=== PATIENT | female | born 1945 | race Caucasian/White ===

== ENCOUNTER 2017-11-27 06:49 | Inpatient (IN) | payer OTHER ==
[2017-11-17 13:59] VITALS: BMI 32.0
--- NOTE | 2017-11-19 10:58 | PAT Medication Instructions ---
Service Date Nov 19, 2017. Current Home Medication List Aspirin (Aspir-81), 81 MG PO QAM Diclofenac Sodium (Voltaren), 75 MG PO BID Multivitamin (Multivitamin), 1 TAB PO QAM Psyllium (Metamucil), 2 CAP PO TIDM Rosuvastatin Calcium (Crestor), 5 MG PO 1-2XWEEK Tramadol (Ultram), 50 MG PO Q6H PRN for RN [Vitamin D], 450 UNITS PO QAM Medication Instructions For Your Scheduled Surgery -Instructions per surgeon: Diclofenac Sodium (Voltaren), 75 MG PO BID - Hold the following medications the morning of surgery: Multivitamin (Multivitamin), 1 TAB PO QAM Psyllium (Metamucil), 2 CAP PO TIDM [Vitamin D], 450 UNITS PO QAM - Take the following medications the morning of surgery with a sip of water: Aspirin (Aspir-81), 81 MG PO QAM Tramadol (Ultram), 50 MG PO Q6H PRN (if needed, may be taken up to four hours before surgery) Rosuvastatin Calcium (Crestor), 5 MG PO 1-2XWEEK (if scheduled) - Take the following medications as scheduled the night before surgery: Tramadol (Ultram), 50 MG PO Q6H PRN (if needed) If you have any questions please call us at [phone] or [phone] or [phone]
[2017-11-19 11:47] LABS: BASO % 0.9 %; BASO ABS # 0.04 K/uL (0-0.2); EOS % 2.1 %; EOS ABS # 0.09 K/uL (0-0.5); HEMOGLOBIN 12.9 g/dL (12.0-16.0); IG# 0.01 K/uL (0.00-0.02); LYMPH % 17.1 %; LYMPH ABS # 0.75 K/uL (1.2-3.4); MEAN CELL VOLUME 93.8 fL (80-100); MEAN CORPUSCULAR HGB CONC 33.1 g/dl (32-36); MEAN PLATELET VOLUME 10.6 fL (7.4-10.4); MONO ABS # 0.44 K/uL (0.11-0.59); NEUT % 69.7 %; NEUT ABS # 3.05 K/uL (1.4-6.5); PLATELET COUNT 209 K/uL (130-400); RED CELL DISTRIBUTION WIDTH CV 13.2 % (11.5-14.5); RED CELL DISTRIBUTION WIDTH SD 45.2 fL (36.4-46.3); WHITE BLOOD COUNT 4.38 K/uL (4.8-10.8)
[2017-11-19 11:55] LABS: PTT PATIENT 24.5 SECONDS (21.0-31.0)
[2017-11-19 12:04] LABS: ALBUMIN 4.1 gm/dl (3.4-5.0); CREATININE 0.82 mg/dl (0.60-1.20); POTASSIUM 3.8 mmol/L (3.5-5.1)
--- NOTE | 2017-11-19 13:31 | DIAGNOSTIC IMAGING REPORT ---
CHEST 2 VIEWS ROUTINE HISTORY: Preop. COMPARISON: None. FINDINGS: The lungs are clear. Cardiac silhouette is normal in size. No pleural effusions. No pneumothorax. IMPRESSION: No acute process. Electronically signed by: John Paul Sorenson M.D. 11/19/2017 1:29 PM Dictated Date/Time: 11/19/2017 1:24 PM
--- NOTE | 2017-11-26 13:52 | HISTORY & PHYSICAL EXAMINATION ---
DATE OF ADMISSION: 11/27/2017 CHIEF COMPLAINT: Right hip pain. HISTORY OF PRESENT ILLNESS: The patient is a 72-year-old female with progressive right hip pain and disability. She has a pain that is affecting her activities of daily living. She has pain with any prolonged weightbearing and standing activities. She has difficulty with any kneeling, bending, or squatting activities. Due to ongoing pain and disability, she now desires to proceed with right total hip arthroplasty. PAST MEDICAL HISTORY: Hypothyroidism. PAST SURGICAL HISTORY: Spine surgery by Dr. Sheth, tubal ligation. MEDICATIONS: Voltaren, aspirin 81 mg daily, vitamin D 400 mg daily, levothyroxine 75 mcg daily. ALLERGIES: ERYTHROMYCIN CAUSES NAUSEA AND VOMITING. SOCIAL HISTORY AND REVIEW OF SYSTEMS: Noncontributory. PHYSICAL EXAMINATION: GENERAL: Well-nourished, well-developed elderly female who appears stated age. HEENT: Normocephalic, atraumatic. Extraocular movements intact, oropharynx pink and moist. NECK: Supple without adenopathy. LUNGS: Clear to auscultation bilaterally. HEART: Regular rate and rhythm. ABDOMEN: Soft, nontender, nondistended. EXTREMITIES: The upper extremities are within normal limits. The right hip demonstrates limited range of motion. There is limitation of active and passive internal/external rotation with pain at end range. X-RAYS: X-rays were reviewed. She has severe osteoarthritis of the right hip with complete loss of the joint space. She has bone on bone arthritis of the hip joint. ASSESSMENT: Right hip degenerative joint disease. PLAN: Risks versus benefits were discussed, consent was obtained. The patient's primary care physician is Dr. Aimee Hudson from [facility] in [place]. We will proceed with right total hip arthroplasty as indicated.
[2017-11-27] VITALS (7 sets, daily range): BP systolic 93–155; BP diastolic 58–91; PULSE 75–100; TEMP 36.4–36.8; O2SAT 92–100; Ht 162.6 cm; Wt 84.1 kg
[~2017-11-27] VITALS: Ht 162.6 cm; Wt 84.1 kg
[2017-11-27] MEDS: TRANEXAMIC ACID INJ 1,000 MG x 2 Bags IV SCH ×4 (06:30→08:50)
[~2017-11-27 06:49] MED LIST: ACETAMINOPHEN 500 MG TAB PO SCH; ASPI-232 PO; BUPIVACAINE 0.5 % 5 MG/1 ML PF 10ML VIAL ONE; CEFAZOLIN 2000MG IV PUSH 15 ML IV SCH; CeleBREX 200 MG CAP PO SCH; DEXAMETHASONE 4 MG TAB PO SCH; DICL75TA2 PO; FAMOTIDINE 20 MG TAB PO SCH; GABAPENTIN 300 MG CAP PO SCH; LACTATED RINGER'S 1000ML 1,000 ML IV SCH; LACTATED RINGER'S 1000ML 500 ML IV SCH; LEVO75TA5 PO; METOCLOPRAMIDE HCL 10 MG TAB PO SCH; MULT-506 PO; PSYL0.524 PO; ROPIVACAINE 5MG/ML 30 ML 150 MG, BUPIVACAINE 0.5% MPF INJ 30 ML, EpINEphrine HCL INJ 0.... INFIL SCH; ROSU5TAB PO; TRAM-10 PO; VITAMIN D PO
[2017-11-27] MEDS ORDERED: MIDAZOLAM HCL 1 MG/ML 2ML VIAL ONE (07:40)
[2017-11-27] MEDS ORDERED: FENTANYL CITRATE INJ 50 MCG/1 ML 2 ML VIAL ONE (07:40)
[2017-11-27] MEDS ORDERED: PROPOFOL IV EMULSION 10 MG/ML 20 ML VIAL ONE (07:41)
[2017-11-27] MEDS ORDERED: LIDOCAINE HCL 2% 2 ML VIAL (20MG/ML) ONE (07:41)
--- NOTE | 2017-11-27 08:13 | History & Physical Bridge Note ---
H&P Re-Evaluation Bridge Note: I have examined the patient, reviewed the History & Physical and in the interval since the performance of the History & Physical I have noted the following changes of clinical significance: No changes noted
[2017-11-27] MEDS ORDERED: POVIDONE-IODINE OP SOLN 30 ML BTL ONE (08:35)
[2017-11-27] MEDS ORDERED: BACITRACIN 50000 UNIT VIAL ONE (08:35)
[2017-11-27] MEDS ORDERED: ORTHO JOINT ANESTHETIC ONE (08:35)
[2017-11-27] MEDS ORDERED: PHENYLEPHRINE 100MCG/ML 5ML SYR IV PRN (08:45)
[2017-11-27] MEDS ORDERED: ONDANSETRON INJ 2 MG/ML 2 ML VIAL IV PRN ×2 (08:45→10:30)
[2017-11-27] MEDS ORDERED: HYDROmorphone INJ 0.5 MG/0.5 ML SYR IV PRN (08:45)
[2017-11-27] MEDS ORDERED: ATROPINE SULFATE 0.1 MG/ML 5ML SYR IV PRN (08:45)
[2017-11-27] MEDS ORDERED: FENTANYL CITRATE INJ 50 MCG/1 ML 2 ML VIAL IV PRN (08:45)
[2017-11-27] MEDS ORDERED: EpHEDrine SULFATE INJ 50 MG/ML AMP IV PRN (08:45)
[2017-11-27] MEDS ORDERED: EpHEDrine SULFATE INJ 50 MG/ML AMP ONE (09:14)
[2017-11-27] MEDS ORDERED: DEXAMETHASONE SOD INJ 4 MG/ML VIAL ONE (09:31)
[2017-11-27] MEDS ORDERED: ONDANSETRON INJ 2 MG/ML 2 ML VIAL ONE (09:31)
--- NOTE | 2017-11-27 10:02 | [facility] Post Operative Brief Note ---
Immediate Operative Summary Operative Date Nov 27, 2017. Pre-Operative Diagnosis Right hip degenerative joint disease Post-Operative Diagnosis Right hip degenerative joint disease Procedure(s) Performed Right total hip arthroplasty, uncemented Surgeon Dr. Leija Director Graphics Surgeon(s) Adriano Alvarado PA-C Estimated Blood Loss 200cc Findings Consistent with Post-Op Diagnosis Specimens A: Right femoral head Anesthesia Type MAC Spinal Regional Complication(s) none Disposition Accompanied Pt To Recover: no Overlapping Procedure I was present for: the critical portions of procedure. I was immediately available: during the entire case
[2017-11-27] MEDS ORDERED: MAGNESIUM HYDROXIDE SUSP 30 ML UDC PO PRN (10:30)
[2017-11-27] MEDS ORDERED: MoRPHine SULFATE 4 MG/ML 1 ML CARP\\VIAL IV PRN (10:30)
[2017-11-27] MEDS ORDERED: METOCLOPRAMIDE HCL INJ 5 MG/ML 2 ML VIAL IV PRN (10:30)
[2017-11-27] MEDS ORDERED: ALUMINUM/MAGNESIUM/SIMETH (MAALOX MAX) 30 ML UDC PO PRN (10:30)
[2017-11-27] MEDS ORDERED: OXYCODONE HCL IR 5 MG TAB (IMMEDIATE RELEASE) PO PRN (10:30)
[2017-11-27] MEDS ORDERED: ZOLPIDEM TARTRATE 5 MG TAB PO PRN (10:30)
--- NOTE | 2017-11-27 11:21 | DIAGNOSTIC IMAGING REPORT ---
R PELVIS/UNILATERAL HIP 1 VIEW CLINICAL HISTORY: Postoperative evaluation. Right hip osteoarthritis. COMPARISON: None FINDINGS: Alignment of the total right hip arthroplasty is anatomic. There is no fracture or unexpected radiopaque foreign body. Surgical drain is in place. There is an acetabular screw. IMPRESSION: Expected findings following total right hip arthroplasty. Electronically signed by: Milad Diaz M.D. 11/27/2017 11:19 AM Dictated Date/Time: 11/27/2017 11:19 AM
--- NOTE | 2017-11-27 11:51 | Anesthesiology Progress Note ---
Anesthesia Post Op Note Date & Time Nov 27, 2017 at 11:50 Vital Signs Pain Intensity: 0 Vital Signs Past 12 Hours Date Time Temp Pulse Resp B/P (MAP) Pulse Ox O2 Delivery O2 Flow Rate FiO2 11/27/17 11:30 36.2 82 16 101/68 98 Nasal Cannula 2 11/27/17 11:20 91 16 99/63 98 Nasal Cannula 2 11/27/17 11:10 91 16 102/68 98 Nasal Cannula 2 11/27/17 11:00 36.2 91 16 100/68 98 Nasal Cannula 2 11/27/17 10:50 90 16 98/68 97 Nasal Cannula 2 11/27/17 10:40 92 16 105/61 100 Oxymask 10 11/27/17 10:30 36.1 96 16 99/64 100 Oxymask 10 11/27/17 07:18 36.8 75 20 155/91 100 Room Air Notes Mental Status: alert / awake / arousable, participated in evaluation Pt Amnestic to Procedure: Yes Nausea / Vomiting: adequately controlled Pain: adequately controlled Airway Patency, RR, SpO2: stable & adequate BP & HR: stable & adequate Hydration State: stable & adequate Neuraxial Anesthesia: was administered, sensory block is resolving Anesthetic Complications: no major complications apparent
[2017-11-27] MEDS: KETOROLAC TROMETHAMINE 15 MG/ML VIAL IV. SCH ×2 (13:06→20:02)
[2017-11-27] MEDS: FERROUS GLUCONATE 324 MG TAB PO SCH ×2 (13:06→17:45)
[2017-11-27] MEDS: D5W AND 1/2NSS + 20MEQ KCL 1,000 ML IV SCH ×2 (13:06→22:36)
--- NOTE | 2017-11-27 13:12 | OPERATIVE REPORT ---
DATE OF OPERATION: 11/27/2017 PREOPERATIVE DIAGNOSIS: Osteoarthritis, right hip. POSTOPERATIVE DIAGNOSIS: Osteoarthritis, right hip. PROCEDURE: Right Papito total hip arthroplasty. SURGEON: Dr. Leija. DECALER: Adriano Alvarado PA-C. ANESTHESIA: Spinal. COMPLICATIONS: None. IMPLANTS USED: Acetabular reamer used 52, acetabular shell 52, femoral stem 4, femoral head -2.5 x 36 ceramic. PROCEDURE: Following induction of adequate spinal anesthesia, the patient was placed in left lateral decubitus position and right Nicolas-Langenbeck incision was made. Subcutaneous tissue was sharply dissected. Electrocautery used for hemostasis. The fascia was incised throughout the length of the wound and a gruber scissor placed beneath the short external rotators. The pyriformis was tagged with #1 Vicryl. The short external rotators were divided from the posterior aspect of the femur using electrocautery. These were swept posteriorly. A T-capsulotomy incision was made and the hip was dislocated using a combination of flexion, adduction, and internal rotation. Exposure of the femoral neck with old-style Hohmann and a blunt Hohmann was carried out and a femoral rasp was utilized as a guide for making the appropriate level femoral neck cut. This bone fragment was removed and reserved on the back table. Next, attention was turned to the acetabulum where bone hook was used to retract the femur while the offset retractors were placed anterior and posteriorly. A double-angled Hohmann was placed in superior and anterior position exposing the acetabulum nicely. Acetabular labrum as well as posterior capsule elements were removed using a long knife and a long pickup. Fovea centralis was cleared of all soft tissue. Sequential reamings were carried up to 52 and decision was made to proceed with impaction of 52 trabecular metal cup. This was impacted and held using a single 35 mm bone screw. The acetabular liner was placed with 15 of elevated posterior wall in the superior and posterior position. Next, attention was turned to the femoral portion of the case where a Bovie and pickup was used to further clear short external rotators from their insertion on the femur. Box osteotome was used to gain access to the femoral canal and the T-handled rasp and a rattail rasp were used to further open and lateral the canal. Sequentially raspings were carried up to a 4, which gave good fit and fill of the proximal femur. A trial reduction was carried out and a 132 degree femoral neck component was chosen as the size to be used. A -2.5 x 36 mm femoral head was impacted into position, +0 head was utilized. The trial reduction was stable in all degrees of rotation with no voor-zx-vehe impingement. The hip was dislocated. The trial components were removed and the final femoral stem, neck, and femoral head combination were assembled on the back table and impacted into position. Hip was relocated. Range of motion checked once again successful and the wound was irrigated. The pyriformis repaired to the greater trochanter using #1 Vicryl [id number] suture. A Hemovac drain was placed and the fascia was closed using #1 Vicryl, subcutaneous tissue was closed using 0 Dexon, and skin was closed with kendra. Sterile dressing of Adaptic, 4 x 4's, ABDs, and foam tape was applied. The patient tolerated the procedure well. Due to the complex nature of the procedure, the entire surgery was performed with the operational assistance of Adriano Alvarado PA-C. The orthodontic assistant, under direct supervision, was involved in the actual performance of all aspects of the surgical procedure including hemostasis, tissue retraction and incision, instrument management, patient positioning, and wound closure. DISPOSITION: Recovery room, stable. I attest to the content of the Intraoperative Record and any orders documented therein. Any exception s are noted below.
[2017-11-27] MEDS: ACETAMINOPHEN 500 MG TAB PO SCH ×2 (15:36→22:37)
[2017-11-27] MEDS: CEFAZOLIN IV 2,000 MG in SYRINGE 0 ML IV SCH (16:21)
[2017-11-27] MEDS: ASPIRIN 81 MG ECTAB PO SCH (20:02)
[2017-11-27] MEDS: DOCUSATE SODIUM 100 MG CAP PO SCH (20:02)
[2017-11-28] MEDS: KETOROLAC TROMETHAMINE 15 MG/ML VIAL IV. SCH ×2 (00:47→06:04)
[2017-11-28] MEDS: CEFAZOLIN IV 2,000 MG in SYRINGE 0 ML IV SCH (00:47)
[2017-11-28 03:36] VITALS: BP 111/69; PULSE 73; TEMP 36.5; O2SAT 99
[2017-11-28 05:51] LABS: HEMATOCRIT 29.7 % (37-47); HEMOGLOBIN 10.1 g/dL (12.0-16.0); IG# 0.02 K/uL (0.00-0.02); LYMPH % 7.1 %; LYMPH ABS # 0.92 K/uL (1.2-3.4); MEAN CELL VOLUME 92.5 fL (80-100); MEAN CORPUSCULAR HEMOGLOBIN 31.5 pg (25-34); MEAN PLATELET VOLUME 10.3 fL (7.4-10.4); MONO % 8.5 %; NEUT % 84.2 %; NEUT ABS # 10.84 K/uL (1.4-6.5); PLATELET COUNT 200 K/uL (130-400); RED CELL DISTRIBUTION WIDTH CV 13.3 % (11.5-14.5); RED CELL DISTRIBUTION WIDTH SD 44.7 fL (36.4-46.3); WHITE BLOOD COUNT 12.88 K/uL (4.8-10.8)
[2017-11-28] MEDS: LEVOTHYROXINE 75 MCG TAB PO SCH (06:04)
[2017-11-28] MEDS: ACETAMINOPHEN 500 MG TAB PO SCH ×3 (06:04→21:47)
[2017-11-28 06:22] LABS: CALCIUM 8.3 mg/dl (8.5-10.1); CREATININE 0.89 mg/dl (0.60-1.20); POTASSIUM 3.9 mmol/L (3.5-5.1)
[2017-11-28 07:00] VITALS: BP 124/74; PULSE 71; TEMP 36.7; O2SAT 95
--- NOTE | 2017-11-28 07:22 | Anesthesiology Progress Note ---
Anesthesia Post Op Note Date & Time Nov 28, 2017 at 07:21 Vital Signs Pain Intensity: 0.0 Vital Signs Past 12 Hours Date Time Temp Pulse Resp B/P (MAP) Pulse Ox O2 Delivery O2 Flow Rate FiO2 11/28/17 07:00 36.7 71 16 124/74 (91) 95 Room Air 11/28/17 03:36 36.5 73 17 111/69 (83) 99 Room Air 11/27/17 23:25 Room Air 11/27/17 23:16 36.8 80 16 114/71 (85) 92 Room Air Notes Mental Status: alert / awake / arousable, participated in evaluation Pt Amnestic to Procedure: Yes Nausea / Vomiting: adequately controlled Pain: adequately controlled Airway Patency, RR, SpO2: stable & adequate BP & HR: stable & adequate Hydration State: stable & adequate Neuraxial Anesthesia: sensory block resolved Anesthetic Complications: no major complications apparent
[2017-11-28] MEDS ORDERED: DEXAMETHASONE INJ 10 MG in SYRINGE 0 ML IV ONE (07:30)
--- NOTE | 2017-11-28 07:34 | Orthopedic Progress Note ---
Orthopedic Progress Note Date of Service Nov 28, 2017. Subjective Post OP Day: 1 Reports: feeling well Objective N/V intact, dressing C/D/I (Hemovac d/c'd), toes mobile Date Time Temp Pulse Resp B/P (MAP) Pulse Ox O2 Delivery O2 Flow Rate FiO2 11/28/17 07:00 36.7 71 16 124/74 (91) 95 Room Air 11/28/17 03:36 36.5 73 17 111/69 (83) 99 Room Air 11/27/17 23:25 Room Air 11/27/17 23:16 36.8 80 16 114/71 (85) 92 Room Air 11/27/17 15:35 Nasal Cannula 2.0 11/27/17 15:02 36.4 89 17 100/62 (75) 99 Nasal Cannula 2.0 11/27/17 14:04 100 17 112/69 (83) 99 Nasal Cannula 2.0 11/27/17 13:02 86 17 93/58 (70) 96 11/27/17 12:30 93 16 109/69 (82) 97 Nasal Cannula 2.0 11/27/17 12:00 Room Air 11/27/17 12:00 Nasal Cannula 2.0 11/27/17 12:00 36.4 94 16 103/63 (76) 99 Nasal Cannula 2.0 11/27/17 11:30 36.2 82 16 101/68 98 Nasal Cannula 2 11/27/17 11:20 91 16 99/63 98 Nasal Cannula 2 11/27/17 11:10 91 16 102/68 98 Nasal Cannula 2 11/27/17 11:00 36.2 91 16 100/68 98 Nasal Cannula 2 11/27/17 10:50 90 16 98/68 97 Nasal Cannula 2 11/27/17 10:40 92 16 105/61 100 Oxymask 10 11/27/17 10:30 36.1 96 16 99/64 100 Oxymask 10 Laboratory Results 24 Hours: Test 11/28/17 05:27 White Blood Count 12.88 K/uL Red Blood Count 3.21 M/uL Hemoglobin 10.1 g/dL Hematocrit 29.7 % Mean Corpuscular Volume 92.5 fL Mean Corpuscular Hemoglobin 31.5 pg Mean Corpuscular Hemoglobin Concent 34.0 g/dl Platelet Count 200 K/uL Mean Platelet Volume 10.3 fL Neutrophils (%) (Auto) 84.2 % Lymphocytes (%) (Auto) 7.1 % Monocytes (%) (Auto) 8.5 % Eosinophils (%) (Auto) 0.0 % Basophils (%) (Auto) 0.0 % Neutrophils # (Auto) 10.84 K/uL Lymphocytes # (Auto) 0.92 K/uL Monocytes # (Auto) 1.10 K/uL Eosinophils # (Auto) 0.00 K/uL Basophils # (Auto) 0.00 K/uL Assessment & Plan Assessment: 72 yo female stable POD #1 s/p right CHRISTINA Plan: 1. Med management 2. DVT prophylaxis- ASA, SCDs 3. PT/OT 4. D/C planning- home w/ HH
--- NOTE | 2017-11-28 08:09 | Discharge Instructions ---
Discharge Instructions Date of Service Nov 28, 2017. Admission Reason for Admission: Right Hip Osteoarthritis Discharge Discharge Diagnosis / Problem: Right hip arthritis Discharge Goals Goal(s): Decrease discomfort, Improve function Activity Recommendations Activity Limitations: as noted below Weightbearing Status: Right weightbearing (as tolerated) . Instructions / Follow-Up Instructions / Follow-Up ACTIVITY RECOMMENDATIONS: SELF CARE INSTRUCTIONS AFTER TOTAL HIP REPLACEMENT Until the incision and soft tissues around your hip have healed, there is a possibility that the hip prosthesis could dislocate. A. Observe the following precautions to prevent dislocation: 1. Don't bend your hip greater than 90 degrees. 2. Avoid crossing your legs or ankles while standing or lying. 3. Sit with your feet placed 6 inches apart. 4. When sitting, keep your knees below your hips. Sit on a firm surface, avoid deep, soft chairs and couches. Use an elevated toilet seat in the bathroom. 5. Don't bend over at the waist. Use a long handled shoehorn and a sock aid to help you put on your shoes and socks. A desizing machine offbearer can help you grocery supervisor objects that are too high or too low to reach. 6. Keep car riding to a minimum for at least one month after surgery. B. Your balance may be shaky for a while. Use crutches or a walker until directed by your doctor. C. Use hand rails when walking on stairs. D. Wear low heeled shoes with non-slip soles. E. Be sure that your floors are free of things that could trip you - throw rugs , electrical cords, small objects. Avoid wet and waxed floors, especially with crutches and canes. F. Try to walk several times a day with rest periods between. G. Continue with all the exercises taught to you in the hospital. Again, make walking a part of your daily routine. SPECIAL CARE INSTRUCTIONS: VERY IMPORTANT TO READ AND REVIEW A. You may still be at risk for phlebitis and blood clots. 1. Wear surgical stockings (VIPIN hose) for 2 weeks after surgery to improve circulation and reduce swelling. 2. Take Aspirin 81mg twice daily for 4 weeks or as directed by your doctor. This is your blood thinner. 3. High risk patients may be prescribed a stronger blood thinner if necessary. 4. If you are on Coumadin normally, your family doctor/division commander should monitor your blood work. Expect a phone call the day of or the day after bloodwork is drawn to adjust your dosage. B. You must take antibiotics before having dental work, bladder, bowel and other surgery. Your doctor will provide you with a permanent card to carry describing precautions. C. Call [facility] if you have a fever, redness or swelling around the incision, cloudy drainage from incision, or sudden increase in pain in your hip, not relieved by your regular pain medication. D. Please call the office at if you have any concerns or questions about your operation or recovery. * YOU MAY SHOWER, NO TUB BATHS UNTIL CLEARED BY YOUR DOCTOR. * WEAR VIPIN HOSE 20 HOURS PER DAY FOR 2 WEEKS. * YOU SHOULD USE A WALKER OR CRUTCHES FOR 2-4 WEEKS. THIS WILL HELP PREVENT STRAIN ON YOUR HIP MUSCLE AND ALLOW IT TO HEAL PROPERLY. YOU MAY WEAN TO A CANE TOLERATED. * MOST PATIENTS WILL HAVE HOME NURSING FOR THERAPY. IF YOU DECIDE TO DO OUTPATIENT PHYSICAL THERAPY, PLEASE SCHEDULE THIS 3 TIMES PER WEEK. Silverlon- This is a large adhesive bandage that contains silver ions. This helps your incision heal by fighting off bacteria and protecting it from the outside environment. You are permitted to shower with this dressing. This will remain on your incision for 7 days and then should be removed. Some visible blood or drainage through the dressing window is normal. If there is significant drainage or leaking noted before the 7 days notify your doctor's office immediately. Once removed, keep incision clean and dry. If there is any drainage or redness noted, please call your surgeon. Zip Skin Closure You have a Zipline Closure System. As noted below, this keeps your incision closed. Change the dressing daily. Keep the wound covered with a dressing as it has the potential to snag on your clothing. The Zipline will remain on for a total of 2 weeks. Do not remove it! You will be given instructions by nursing staff at the time of discharge to care for your Zip Closure System. This devices uses plastic straps to keep your incision closed and protected throughout your recovery. If you have any questions please refer to these instructions first. FOLLOW UP VISIT: If appointment is not already scheduled: Please call [facility] to make a follow-up appointment for 2 weeks after your surgery at . Current Hospital Diet Patient's current hospital diet: Regular Diet Discharge Diet Recommended Diet: Regular Diet Procedures Procedures Performed: Right total hip arthroplasty, uncemented Pending Studies Studies pending at discharge: no Laboratory Results Hemoglobin A1c Test 11/19/17 10:45 Range/Units Estimated Average Glucose 97 mg/dl Hemoglobin A1c 5.0 4.5-5.6 % Medical Emergencies . Who to Call and When: Medical Emergencies: If at any time you feel your situation is an emergency, please call 911 immediately. . Non-Emergent Contact Non-Emergency issues call your: Surgeon Call Non-Emergent contact if: temperature is above 101.5, your pain is not controlled, wound has increased drainage, wound has increased redness . "Provider Documentation" section prepared by Adriano Alvarado PA-C. . [place] Drug Monitoring Program Search Results: patient reviewed within database, no issues identified
[2017-11-28] MEDS: FERROUS GLUCONATE 324 MG TAB PO SCH ×3 (08:30→18:29)
[2017-11-28] MEDS: PANTOprazole SOD 40 MG TAB PO SCH (08:35)
[2017-11-28] MEDS: MULTIVITAMIN TAB PO SCH (08:35)
[2017-11-28] MEDS: ASPIRIN 81 MG ECTAB PO SCH ×2 (08:35→20:13)
[2017-11-28] MEDS: DOCUSATE SODIUM 100 MG CAP PO SCH ×2 (08:35→20:13)
[2017-11-28 11:56] VITALS: BP 135/74; PULSE 86; TEMP 36.7; O2SAT 96
[2017-11-28 13:40] VITALS: BP 136/82; PULSE 86; O2SAT 100
[2017-11-28 15:41] VITALS: BP 129/72; PULSE 78; TEMP 36.7; O2SAT 98
[2017-11-28] MEDS: CeleBREX 200 MG CAP PO SCH (20:13)
[2017-11-28 23:43] VITALS: BP 135/71; PULSE 82; TEMP 36.7; O2SAT 98
[2017-11-29] MEDS: ACETAMINOPHEN 500 MG TAB PO SCH (05:39)
[2017-11-29] MEDS: LEVOTHYROXINE 75 MCG TAB PO SCH (05:39)
[2017-11-29 06:43] VITALS: BP 117/74; PULSE 67; TEMP 36.6; O2SAT 98
[2017-11-29] MEDS: FERROUS GLUCONATE 324 MG TAB PO SCH (07:44)
[2017-11-29] MEDS: MULTIVITAMIN TAB PO SCH (07:44)
[2017-11-29] MEDS: DOCUSATE SODIUM 100 MG CAP PO SCH (07:44)
[2017-11-29] MEDS: PANTOprazole SOD 40 MG TAB PO SCH (07:44)
[2017-11-29] MEDS: ASPIRIN 81 MG ECTAB PO SCH (07:45)
--- NOTE | 2017-11-29 08:08 | Orthopedic Progress Note ---
Orthopedic Progress Note Date of Service Nov 29, 2017. Subjective Post OP Day: 2 Reports: feeling well (Pt with c/o low back pain(chronic) more than hip pain) Objective calves soft nontender, N/V intact, dressing C/D/I, toes mobile Date Time Temp Pulse Resp B/P (MAP) Pulse Ox O2 Delivery O2 Flow Rate FiO2 11/29/17 06:43 36.6 67 16 117/74 (88) 98 Room Air 11/28/17 23:50 Room Air 11/28/17 23:43 36.7 82 18 135/71 (92) 98 Room Air 11/28/17 15:41 36.7 78 17 129/72 (91) 98 Room Air 11/28/17 15:15 Room Air 11/28/17 13:40 86 100 11/28/17 11:56 36.7 86 17 135/74 (94) 96 Room Air Assessment & Plan Assessment: 72 yo female stable POD #2 s/p right CHRISTINA Plan: 1. Med management 2. DVT prophylaxis- ASA, SCDs 3. PT/OT 4. D/C planning- home w/ HH
[2017-11-29] MEDS ORDERED: ACET-24 PO (08:11)
[2017-11-29] MEDS ORDERED: RXC5 PO (08:11)
[2017-11-29] MEDS ORDERED: ASPI-461 PO (08:11)
[2017-11-29] MEDS ORDERED: CLB200 PO (08:11)
[2017-11-29] MEDS: CeleBREX 200 MG CAP PO SCH (08:37)
[2017-11-29 08:43] VITALS: BP 117/74; PULSE 67; TEMP 36.6; O2SAT 98
--- NOTE | 2017-12-10 17:37 | DISCHARGE SUMMARY ---
CHIEF COMPLAINT: Right hip pain. Please see complete history and physical examination. HOSPITAL COURSE: The patient underwent right total hip arthroplasty without complication. She tolerated the procedure well and was discharged to recovery room in stable condition. Her postop course was relatively uneventful. Her postoperative pain was reasonably well controlled with a combination of spinal anesthesia, intraoperative joint injection, IV, and oral pain medications. She was started on aspirin for DVT prophylaxis. She was utilized VIPIN stockings and SCDs for additional prophylaxis. Her H&H was stable and did not require transfusion. Her surgical drain was discontinued on postop day 1, surgical dressing will remain in place for approximately 7 days postoperative. She tolerated postop physical therapy reasonably well. She was ambulating and transferring appropriately. She was observing all total hip precautions. She was discharged home on postoperative day 2. She will continue her physical therapy at home. She will continue her aspirin for DVT prophylaxis and follow up in our office in approximately 10-14 days for initial postop evaluation.
== END 2017-11-29 10:34 | disposition home health service (06) | DRG 470 ==
LOC: C.ACU 06:49 → C.3E 08:24 → ENRESERV 10:49
PROC: 0SR903Z Replacement of Right Hip Joint with Ceramic Synthetic Substitute, Open Approach (ICD-10-PCS; principal; 2017-11-27 09:15)
DX: M16.11 Unilateral primary osteoarthritis, right hip (principal); E03.9 Hypothyroidism, unspecified; Z88.1 Allergy status to other antibiotic agents

== ENCOUNTER 2020-01-07 10:31 | Observation (INO) ==
--- NOTE | 2019-10-17 21:41 | PAT Medication Instructions ---
Medication Instructions Date of Service October 17, 2019 Home Medications aspirin 81 mg PO QAM calcium citrate-vitamin D3 [Citracal-D3 Petites] 2 tab PO DAILY levothyroxine 75 mcg PO QAM meloxicam 15 mg PO QAM multivitamin 1 tab PO QAM psyllium husk [Metamucil] 0.52 g PO DAILY tramadol 50 mg PO UD PRN ASK your surgeon for instructions meloxicam 15 mg PO QAM DO NOT take the morning of surgery calcium citrate-vitamin D3 [Citracal-D3 Petites] 2 tab PO DAILY multivitamin 1 tab PO QAM psyllium husk [Metamucil] 0.52 g PO DAILY Take morning of surgery With a small sip of water, OTHERWISE NOTHING TO EAT OR DRINK AFTER MIDNIGHT: aspirin 81 mg PO QAM levothyroxine 75 mcg PO QAM tramadol 50 mg PO UD PRN (okay to take up to 4 hours prior to surgery if needed) Take evening before surgery tramadol 50 mg PO UD PRN (if needed) Other Notes If you have any questions please call us at [phone] or [phone] or [phone] or [phone]
--- NOTE | 2019-10-21 11:56 | Anesthesiology Consultation ---
Date of Service October 21, 2019 Assessment & Plan (1) Encounter for pre-operative examination: Per PAT assessment on 10/19: Travel screen- Lives in [place]. No known COVID-19 positive contacts. No current COVID-19 related symptoms. Patient scheduled for preop COVID testing 11/24 ([facility]). Awaiting results. - Right CHRISTINA: 11/27/17: SAB x1 attempt at L2-L3 at [facility] Chart Review Chart Review: Acceptable Risk for Surgery (pending COVID testing) and Patient seen in Pre Admission Testing Teaching & Discussion Pre-Anesthesia Teaching/Discussion Notes: Instructed NPO after midnight before surgery,except medications with 15 cc of water. Medication instructions provided according to the PAT guidelines. History Surgery Operation Date: 11/30/19 07:00 Proposed Procedures p Left Total Knee Replacement - Chad Manzanares MD Height/Weight Height: 5 ft 5 in Weight: 85.9 kg Allergies Allergy/AdvReac Type Severity Reaction Status Date / Time erythromycin base AdvReac Intermediate GI UPSET Verified 10/21/19 12:11 Medications Home Medications Medication Instructions Recorded Confirmed Last Taken aspirin 81 mg PO QAM 10/14/19 10/14/19 Unknown calcium citrate-vitamin D3 2 tab PO DAILY 10/14/19 10/14/19 Unknown [Citracal-D3 Petites] levothyroxine 75 mcg PO QAM 10/14/19 10/14/19 Unknown meloxicam 15 mg PO QAM 10/14/19 10/14/19 Unknown multivitamin 1 tab PO QAM 10/14/19 10/14/19 Unknown psyllium husk [Metamucil] 0.52 g PO DAILY 10/14/19 10/14/19 Unknown tramadol 50 mg PO UD PRN 10/14/19 10/14/19 Unknown Past Medical History Medical History Constipation Hypothyroidism Left knee DJD Osteoarthritis Exercise / Class Metabolic Activity II 4-5 Yardwork/Stairs/Walk up hill (one flight of stairs (no chest pain/no sob)) Past Family History Family History Mother Diabetes Other No family history of adverse response to anesthesia Past Surgical History Surgical History History of cataract surgery History of colonoscopy History of lumbar surgery + hardware History of right hip replacement 11/27/17: SAB x1 attempt at L2-L3 at [facility] History of tubal ligation Past Anesthesia History No Hx of Anesthesia Complications and No Family Hx of Anesthesia Complications History of PONV No Hx of PONV and No Hx of Motion Sickness Social History Smoking Status: Former smoker Do You Dip or Chew Tobacco: No Smoking End Date: Quit age 22 Hx Alcohol Use: Yes Alcohol type: wine alcohol intake frequency: a few times a month Hx Substance Use: No substance use type: does not use Review of Systems Patient denies chest pain, shortness of breath, dyspnea on exertion, fever, chills, cough, wheezing, palpitations. Physical Exam Vital Signs VITALS BP 106/71 P 83 TEMP 98.4 SP02 98%RA RESP 16 PHYSICAL Full neck and c-spine range of motion. Full TMJ range of motion. TMD 3 finger breaths Mallampati Score 2 Dentition: intact, + bridge on upper sides Lungs: clear throughout to auscultation Cardiac: regular rate and rhythm, no murmurs noted Spine: normal Carotid arteries: negative bruit Extremities: no edema Short neck Testing Laboratory Results 10/21/19 12:24 10/21/19 12:24 PT 11.3 Seconds (9.0-12.0) 10/21/19 12:24 INR 1.1 (0.9-1.1) 10/21/19 12:24 APTT 26.5 Seconds (21.0-31.0) 10/21/19 12:24 Blood Type A Positive 10/21/19 12:24 Antibody Screen NEGATIVE 10/21/19 12:24 Electrocardiogram Date: 10/21/19 NSR at 80bpm. unconfirmed report* Chest X-Ray Date: 10/21/19 Findings: + NAD
[2019-10-21 12:54] LABS: Basophils # (auto) 0.02 K/uL (0-0.2); Basophils % (auto) 0.4 %; Eosinophils # (auto) 0.05 K/uL (0-0.5); Eosinophils % (auto) 0.9 %; Hematocrit (blood only) 38.8 % (37-47); Hemoglobin 12.6 g/dL (12.0-16.0); Lymphocytes # (auto) 0.72 K/uL (1.2-3.4); Lymphocytes % (auto) 13.5 %; Mean Corpuscular Hemoglobin 30.7 pg (25-34); Mean Corpuscular Hgb Conc 32.5 g/dL (32-36); Mean Corpuscular Volume 94.6 fL (80-100); Mean Platelet Volume 10.2 fL (7.4-10.4); Monocytes # (auto) 0.31 K/uL (0.11-0.59); Monocytes % (auto) 5.8 %; Neutrophils # (auto) 4.24 K/uL (1.4-6.5); Neutrophils % (auto) 79.4 %; Platelet Count 220 K/uL (130-400); RDW Coefficient of Variation 13.5 % (11.5-14.5); RDW Standard Deviation 46.9 fL (36.4-46.3); White Blood Count 5.34 K/uL (4.8-10.8)
--- NOTE | 2019-10-21 12:56 | XRay Report ---
XR chest Pre-admission PA/Lat CLINICAL HISTORY: PAT preoperative COMPARISON STUDY: 10/21/2013 FINDINGS: The bones soft tissues and hemidiaphragms are normal. The cardiomediastinal silhouette is n ormal. The lungs are clear. The pulmonary vasculature is normal. IMPRESSION: Negative chest. ACT 112: Negative or not required by law. The above report was generated using voice recognition software. It may contain grammatical, syntax or spelling errors. Electronically signed by: Collins Li M.D. 10/21/2019 12:55 PM
[2019-10-21 13:08] LABS: INR 1.1 (0.9-1.1); Partial Thromboplastin Ratio 0.9; Partial Thromboplastin Time 26.5 Seconds (21.0-31.0); Prothrombin Time 11.3 Seconds (9.0-12.0)
[2019-10-21 16:04] LABS: BUN Creatinine Ratio 18.2 (10-20); C Reactive Protein 0.7 mg/dl (0-0.29); Calcium 9.1 mg/dl (8.5-10.1); Creatinine Clr Calc Pharmacy 54.2 ml/min; Est GFR (African American) 63.3; Est GFR (Non-African American) 54.6; Potassium 3.9 mmol/L (3.5-5.1)
--- NOTE | 2019-10-21 17:15 | Electrocardiogram Report ---
Test Reason : Blood Pressure : / mmHG Vent. Rate : 080 BPM Atrial Rate : 080 BPM P-R Int : 146 ms QRS Dur : 092 ms QT Int : 388 ms P-R-T Axes : 066 028 050 degrees QTc Int : 447 ms Normal sinus rhythm Normal ECG When compared with ECG of 21-OCT-2013 13:11, T wave inversion no longer evident in Inferior leads Confirmed by Rohan Valenzuela ([id number]) on 10/21/2019 5:15:02 PM Referred By: Chad Manzanares Confirmed By:Eros Valenzuela
--- NOTE | 2019-12-31 13:35 | Anesthesiology Consultation ---
Date of Service December 31, 2019 Assessment & Plan (1) Encounter for pre-operative examination: Chart Review Chart Review: Acceptable Risk for Surgery (pending preop Covid testing ) and Patient NOT seen in Pre Admission Testing Pt's surgery initially scheduled 11/30/19- pt rescheduled secondary to pancreatitis until 01/07/20. Per nursing assessment 12/31/2019, patient denies any recent travel. No known Covid positive contacts or Covid related symptoms. Scheduled for preop COVID testing 01/03/2020. Right CHRISTINA 11/27/17= Done under SAB at L2-3 with 1 attempt. No anesthesia issues noted. History Surgery Operation Date: 01/07/20 10:40 Proposed Procedures p Left Total Knee Replacement - Chad Manzanares MD Height/Weight Height: 5 ft 5 in Weight: 78.018 kg Allergies Allergy/AdvReac Type Severity Reaction Status Date / Time erythromycin base AdvReac Intermediate GI UPSET Verified 12/31/19 13:03 Medications Home Medications Medication Instructions Recorded Confirmed Last Taken aspirin 81 mg PO QAM 10/14/19 12/31/19 Unknown calcium citrate-vitamin D3 2 tab PO DAILY 10/14/19 12/31/19 Unknown [Citracal-D3 Petites] levothyroxine 75 mcg PO QAM 10/14/19 12/31/19 Unknown meloxicam 15 mg PO QAM 10/14/19 12/31/19 Unknown multivitamin 1 tab PO QAM 10/14/19 12/31/19 Unknown psyllium husk [Metamucil] 0.52 g PO DAILY 10/14/19 12/31/19 Unknown tramadol 50 mg PO UD PRN 10/14/19 12/31/19 Unknown Past Medical History Medical History (Updated 12/31/19 @ 13:42 by Rakel Kelly PA-C) Constipation Hypothyroidism Osteoarthritis Past Family History Family History Mother Diabetes Other No family history of adverse response to anesthesia Past Surgical History Surgical History History of cataract surgery History of cholecystectomy History of colonoscopy History of lumbar surgery + hardware History of right hip replacement 11/27/17: SAB x1 attempt at L2-L3 at [facility] History of tubal ligation Social History Smoking Status: Former smoker Do You Dip or Chew Tobacco: No Smoking End Date: Quit age 22 Hx Alcohol Use: Yes Alcohol type: wine alcohol intake frequency: a few times a month Hx Substance Use: No substance use type: does not use Testing Laboratory Results 10/21/19 12:24 10/21/19 12:24 PT 11.3 Seconds (9.0-12.0) 10/21/19 12:24 INR 1.1 (0.9-1.1) 10/21/19 12:24 APTT 26.5 Seconds (21.0-31.0) 10/21/19 12:24 Blood Type A Positive 10/21/19 12:24 Antibody Screen NEGATIVE 10/21/19 12:24 Laboratory Tests 12/14/19 12/14/19 12/14/19 07:41 07:41 07:41 WBC 3.92 L Hgb 12.7 Hct 39.7 Plt Count 235 PT 11.3 INR 1.1 Sodium 144 Potassium 4.1 Chloride 109 H Carbon Dioxide 29 BUN 9 Creatinine 0.78 Glucose 93 Electrocardiogram Date: 10/21/19 NSR at 80bpm. Chest X-Ray Date: 10/21/19 Findings: + NAD
--- NOTE | 2020-01-01 21:15 | History and Physical Report ---
DATE OF ADMISSION: 01/07/2020 CHIEF COMPLAINT: Persistent progressive left knee pain and discomfort. HISTORY OF PRESENT ILLNESS: The patient is a 74-year-old female who presents for treatment of her left knee. She has got a long history of left knee pain and discomfort, followed most recently by Dr. Huerta. She did have a right hip replacement done by Dr. Leija about 2 years ago. She has been treated conservatively with injections, which provided some temporary relief. We had her scheduled for surgery in the past, but it was canceled due to the COVID epidemic. She now presents for repeat evaluation and surgical treatment. She continues to be bothered by global pain. The more she walks, the more it hurts. She has a limited walking tolerance. PAST MEDICAL HISTORY: Significant for, 1. Hypothyroidism. 2. Lumbar spine disease, status post surgery. 3. Mild obesity with BMI of 32. PAST SURGICAL HISTORY: Includes, 1. Spine surgery in 2013. 2. Eye surgery. 3. Right hip replacement done in 2018. ALLERGIES: ERYTHROMYCIN. CURRENT MEDICINES: Include, 1. Meloxicam. 2. Calcium citrate. 3. Aspirin. 4. Multivitamin. 5. Levothyroxine. 6. Tramadol. 7. Crestor. SOCIAL HISTORY: A 74-year-old female. No significant alcohol intake. Does not smoke. FAMILY HISTORY: Noncontributory. REVIEW OF HISTORY: Negative for diabetes, neurologic problem, vascular problems or bleeding disorders. No chest pain or shortness of breath. No history of DVT or PE. PHYSICAL EXAMINATION: GENERAL: Shows a pleasant, middle-aged female. Looks to be in reasonably good health. HEENT: Benign. NECK: Supple, no lymphadenopathy. LUNGS: Clear to auscultation. HEART: Has a regular rate and rhythm. ABDOMEN: Soft, nontender, nondistended. EXTREMITIES: Grossly neurovascularly intact except as follows: Examination of the left knee reveals the patient walks with slight valgus alignment to her knee, which is increased with weightbearing. She is tender diffusely around the knee. Small knee effusion. Range of motion is 5-120. There is no instability. No pain with hip motion. X-RAYS: X-rays of the left knee were reviewed. It shows advanced left knee lateral compartment DJD. She has complete loss of her lateral joint space. She has got osteophytes off the lateral femoral condyle and lateral tibial plateau. She has subchondral sclerosis. ASSESSMENT: A 74-year-old white female with advanced left knee degenerative joint disease. She would like to proceed with surgery. She was scheduled in the past but canceled due to the COVID epidemic. Continues to be bothered by pain and would like her knee fixed. PLAN: We will take her to the operating room and do a left total knee replacement. The risks and benefits of this procedure were explained to the patient including but not limited to DVT, PE, , infection, neurological injury, vascular injury, bleeding problem, pain, limited range of motion, stiffness, failure to relieve her symptoms, incomplete relief of symptoms, need for further surgery in the future, fracture, leg length inequality, nerve palsy, etc. The patient understands and desires to proceed. Informed consent was obtained. She does have several other medical comorbidities, which make her surgical risk slightly increase including her hypothyroidism, lumbar spine disease, and obesity. As far as pain control postoperatively, we will likely use oxycodone. We will use aspirin for DVT prophylaxis. She knows to stop her meloxicam 10 days preop. She will use [facility] home health program upon discharge.
[~2020-01-07 10:31] MED LIST changes: -ASPI-232 PO; +BUPIVACAINE LIPOSOME/PF 266 MG, BUPIVACAINE/EPINEPHRINE 50 ML, SODIUM CHLORIDE 0.9% 30 ... INFIL SCH; +CEFAZOLIN 2000MG 2,000 MG/15 ML SYR IV SCH; -CEFAZOLIN 2000MG IV PUSH 15 ML IV SCH; -CeleBREX 200 MG CAP PO SCH; -DEXAMETHASONE 4 MG TAB PO SCH; -DICL75TA2 PO; +EPINEPHrine INJ 1 MG/ML AMP ONE; -LACTATED RINGER'S 1000ML 1,000 ML IV SCH; -LACTATED RINGER'S 1000ML 500 ML IV SCH; -LEVO75TA5 PO; +LR 500ML BOLUS, THEN 15ML/HR IV SCH; +LR 60ML/HR IV SCH; -METOCLOPRAMIDE HCL 10 MG TAB PO SCH; +METOCLOPRAMIDE HCL 10 MG TABLET PO SCH; -MULT-506 PO; -PSYL0.524 PO; +ROPIVACAINE 0.5% 5 MG/ML 30 ML VIAL ONE; -ROPIVACAINE 5MG/ML 30 ML 150 MG, BUPIVACAINE 0.5% MPF INJ 30 ML, EpINEphrine HCL INJ 0.... INFIL SCH; -ROSU5TAB PO; -TRAM-10 PO; +TRANEXAMIC ACID 1,000 MG **IV Intra-op IV SCH; -VITAMIN D PO
--- NOTE | 2020-01-07 11:17 | History & Physical Bridge Note ---
Date of Service January 07, 2020 History & Physical Bridge Note I have examined the patient, reviewed the History & Physical and in the interval since the performance of the History & Physical I have noted the following changes of clinical significance: no changes noted
[2020-01-07] MEDS ORDERED: fentaNYL citrate 100 MCG/2 ML VIAL ONE (11:38)
[2020-01-07] MEDS ORDERED: MIDAZOLAM HCL 1 MG/ML 2ML VIAL ONE (11:39)
[2020-01-07] MEDS ORDERED: PROPOFOL IV EMULSION 10 MG/ML 20 ML VIAL IV ONE (11:41)
[2020-01-07] MEDS ORDERED: SODIUM CHLORIDE 0.9% PF 50 ML VIAL ONE (13:30)
[2020-01-07] MEDS ORDERED: BUPIVACAINE LIPOSOME 1.3% 266 MG/20 ML VIAL ONE (13:30)
[2020-01-07] MEDS ORDERED: BUPIVACAINE/EPINEPHRINE 0.25% 1:200,000 30 ML VIAL ONE (13:30)
[2020-01-07] MEDS ORDERED: BACITRACIN INJ 50,000 UNIT VIAL ONE (13:31)
[2020-01-07] MEDS ORDERED: EPINEPHrine INJ 1 MG/ML AMP ONE (13:31)
[2020-01-07] MEDS ORDERED: BUPIVACAINE 0.25% 30 ML VIAL ONE (13:31)
[2020-01-07] MEDS ORDERED: ePHEDrine sulfate 50 MG/ML AMP IV PRN (14:02)
[2020-01-07] MEDS ORDERED: ATROPINE SULFATE 0.1 MG/ML 10ML SYR IV PRN (14:02)
[2020-01-07] MEDS ORDERED: ONDANSETRON INJ 2 MG/ML 2 ML VIAL ONE (14:38)
[2020-01-07] MEDS ORDERED: ePHEDrine sulfate 50 MG/ML SYR ONE (15:27)
--- NOTE | 2020-01-07 15:42 | Post Operative Brief Note ---
PG Immediate Post Op with CF Date of Surgery January 07, 2020 Pre & Post Diagnosis Operation Date: 01/07/20 12:30 Pre-Op Diagnosis: Left Knee Advanced Degenerative Joint Disease Post-Op Diagnosis: Left Knee Advanced Degenerative Joint Disease I identified the patient and participated in the time-out.: Yes Procedure Operation Date: 01/07/20 12:30 Actual Procedures p Left Total Knee Arthroplasty(Left) - Chad Manzanares MD Surgeon Chad Manzanares MD Senior Patrol Agent Janice, PAC Estimated Blood Loss 50 Findings Consistent with Post-Op Diagnosis Fluids 1500 cc Specimens Specimen Description: A. Left Knee Bone and Tissue Drains Spaulding Catheter Anesthesia Type Spinal MAC Complications none Disposition Accompanied Patient To Recovery: No Disposition: Recovery Room
--- NOTE | 2020-01-07 16:21 | Anesthesiology Progress Note ---
Date of Service January 07, 2020 Anesthesia Post Procedure Vital Signs Vital Signs: Temp Pulse Pulse Resp BP BP Pulse Ox 01/07/20 16:15 66 14 110/65 98 01/07/20 16:05 79 13 121/63 96 01/07/20 15:55 66 12 114/68 100 01/07/20 15:48 37.1 C 87 12 99/67 L 100 01/07/20 11:00 37.2 C 77 18 117/79 99 Transfer of Care Handoff Completed per policy Notes Mental Status: alert / awake / arousable Patient Amnestic to Procedure: Yes Nausea / Vomiting: adequately controlled Pain: adequately controlled Airway Patency, RR, SpO2: stable & adequate BP & HR: stable & adequate Hydration State: stable & adequate Neuraxial Anesthesia: was administered and sensory block is resolving Anesthetic Complications: no major complications apparent and Pt Satisfied with anesthetic care
--- NOTE | 2020-01-07 16:24 | XRay Report ---
XR knee LT 1 or 2V routine HISTORY: 74 years-old Female Surgical Post Op [knee total joint arthroplasty COMPARISON: Knee radiographs 10/21/2019 TECHNIQUE: 2 views of the left knee FINDINGS: Left knee total joint arthroplasty and patella resurfacing. Anterior midline skin kendra are noted a long with expected postsurgical soft tissue swelling and deep tissue air with surgical drainage alonso ter. No acute fracture or retained foreign body. IMPRESSION: Left knee total joint arthroplasty and patella resurfacing with expected postoperative ch anges. ACT 112: Negative or not required by law. The above report was generated using voice recognition software. It may contain grammatical, syntax o r spelling errors. Electronically signed by: Anurag De La Torre M.D. 01/07/2020 4:22 PM
[2020-01-07] MEDS ORDERED: TRAMADOL HCL 50 MG TABLET PO PRN (16:56)
[2020-01-07] MEDS ORDERED: bisacodyL 10 MG SUPP PR PRN (16:56)
[2020-01-07] MEDS ORDERED: HYDROmorphone INJ 0.5 MG/0.5 ML SYR IV PRN (16:56)
[2020-01-07] MEDS ORDERED: MAGNESIUM HYDROXIDE SUSP 30 ML UDC PO PRN (16:56)
[2020-01-07] MEDS ORDERED: ONDANSETRON INJ 2 MG/ML 2 ML VIAL IV PRN (16:56)
[2020-01-07] MEDS ORDERED: METOCLOPRAMIDE HCL INJ 5 MG/ML 2 ML VIAL IV PRN (16:56)
[2020-01-07] MEDS ORDERED: ALUMINUM/MAGNESIUM SUSP 30 ML UDC PO PRN (16:56)
[2020-01-07] MEDS ORDERED: NALOXONE HCL 0.4 MG/1 ML VIAL/CARP IV PRN (16:56)
[2020-01-07] MEDS: Scopolamine CHECK PATCH PLACEMENT SCH (17:08)
[2020-01-07] MEDS: SODIUM CHLORIDE 0.9% 1000ML 1,000 ML IV SCH (17:12)
--- NOTE | 2020-01-07 17:37 | Operative Report ---
Post Operative Report Pre & Post Diagnosis Operation Date: 01/07/20 12:30 Pre-Op Diagnosis: Left Knee Advanced Degenerative Joint Disease Post-Op Diagnosis: Left Knee Advanced Degenerative Joint Disease I identified the patient and participated in the time-out.: Yes Procedure Operation Date: 01/07/20 12:30 Actual Procedures p Left Total Knee Arthroplasty(Left) - Chad Manzanares MD Surgeon Chad Manzanares MD Investor Relations Manager Janice, PAC Estimated Blood Loss 50 Findings Consistent with Post-Op Diagnosis Operative findings: Advanced left knee DJD. She had extensive grade 4 [id number] disease in all 3 compartments most severe in the the lateral side with extensive eburnation and a fixed valgus deformity to her knee. She had osteophytes particularly laterally. Moderate-sized joint effusion. Fluids 1500 cc. Specimens Left knee sent for pathology. Drains None. Anesthesia Type Spinal MAC Complications none Disposition Accompanied Patient To Recovery: No Disposition: Recovery Room Indications Patient is a 74-year-old female is had a fairly long history of left knee pain discomfort describes gotten worse over time. She developed a fixed valgus deformity to her knee. She is failed extensive conservative care. She is actually been scheduled for knee replacement several times but canceled for various reasons most specifically for the COVID virus. She dialectic see the total knee arthroplasty. Description of Procedure Operative implants consist of: 1. Biomet Vanguard size 60 left posterior stabilized femoral component. 2. Biomet size 67 tibial tray. 3. 10 mm posterior stabilized polyethylene insert. 4. 31 x 8 all poly-patella. Patient was taken to the operating identified and placed on the operating table supine position. All contractors were properly padded. IV antibiotics arrived by anesthesia team. A spinal anesthetic and abductor canal block had been brought in the holding area. Spaulding catheter was placed in sterile fashion for the left thigh turn was then placed in the left lower extremities and prepped and draped in the usual sterile fashion. The left leg was elevated exsanguinated with use of an Esmarch interspace at 3 mmHg. An anterior approach the left knee was then performed to a longitudinal incision centered over the patella. Sharp dissection was got through subcutaneous tissue down to the extensor mechanism. A medial parapatellar arthrotomy incision was made. Some subperiosteal dissection was carried out medially. The fat pad was resected from each patella tendon. Lateral patellofemoral ligament was released. Patella was subluxated laterally and the knee was flexed. The osteophytes were taken off distal femur. The ACL and PCL were then released from distal femur the tibia subluxated anteriorly. The external tibial alignment jig was then placed in the anterior face the tibia and adjusted 12 mm medially. Proximal tibial cut was made to remove approximately 3 to 4 mm of bone from the medial side. The tibia sized to a size 67. Attention drawn the femur. The distal femur stem with a sharp drop with intramedullary canal was suction. A left 5 degrees valgus cutting guide was placed. The distal femoral cutting block was pinned in place. Distal femoral cut was made to take an additional 3 mm of bone off distal femur. The knee was then brought out in extension I did release him the IT band posterior lateral capsule taking great care to protect the peroneal nerve at all times. This was done to equalize the extension gap. The knee was then flexed. The femur was sized to a size 60. The AP cutting block was pinned parallel to the epicondylar axis which was 6 degrees of external rotation. The anterior cut, anterior chamfer, posterior cut, posterior chamfer cuts were made. Box cutting guide was placed and adjusted slightly laterally. The box cut was made. The remnants of the medial lateral menisci were excised. The osteophytes were taken off the posterior aspect of the femur. I did release the popliteus in order to equalize the flexion gap. The trial femoral component was placed for the tibial tray was pinned in maximum external rotation and the drill and stem punch used to create defect in the proximal tibia for the tibial tray. Knee was then trialed the 10 mm insert fit most appropriately. Attention drawn the patella. The patella was cleaned of all soft tissues. Patella thickness measured 18 mm in thickness was cut down to 12. Was sized to a size 31 patella. Levels were drilled for 31 patella. The lateral osteophyte was moved. Patella button was placed. Knee was taken through range of motion patella tracked nicely with a no thumbs test. Attention drawn to place the permanent components. All trial components were removed. Bone plug was placed into the distal femur limit blood loss. A double batch Palacos G cement was mixed. [employer] size 60 left posterior stabilized femoral component, size 67 tibial tray, a 10 mm posterior Bise polyethylene insert, and a 31 x 8 all poly-patella were then cemented in place. The knee was brought out into full extension until cement hardened. Final cement check was then performed. The pericapsular tissues were injected with total 100 cc of combination of 20 of Exparel, 30 cc normal saline, 50 cc of quarter percent Marcaine with epinephrine. Patient did receive 1 g tranexamic acid. The tear was then let down for a final turn time 61 minutes. Hemostasis to reduce electrocautery. The extensor mechanism then closed with combination 1 PDS suture #1 Vicryl suture in [id number] fashion. The extensor mechanism checked found to be intact and the subcutaneous tissue then closed with 2 Dexon suture in a buried interrupted fashion skin was closed skin kendra. Leg was then cleaned and dried a sterile dressing composed Xeroform, 4 fours, sterile cast padding, Thong bandage were applied. Patient then transferred to the recovery in stable condition. Patient tolerated procedure well and there are no complications. The Janice, my physician oncology physician assistant, was present for the entire procedure. His assistance was essential and required for appropriate patient positioning, prepping and draping, surgical exposure, performing the technical details of the operation, placing the implants, closing the wound, and placement of the sterile bandage. I attest to the content of the Intraoperative Record and any orders documented therein. Any exceptions are noted below.
[2020-01-07] MEDS: KETOROLAC TROMETHAMINE 15 MG/ML VIAL IV SCH ×2 (17:49→23:13)
[2020-01-07] MEDS: FERROUS GLUCONATE 324 MG TAB PO SCH (17:50)
[2020-01-07] MEDS: ASCORBIC ACID 500 MG TAB PO SCH (17:50)
[2020-01-07] MEDS: ASPIRIN 81 MG ECTAB PO SCH (20:15)
[2020-01-07] MEDS: DOCUSATE SODIUM 100 MG CAP PO SCH (20:15)
[2020-01-07] MEDS: CEFAZOLIN 1000MG 1,000 MG/7.5 ML SYR IV SCH (20:15)
[2020-01-07] MEDS ORDERED: SENNA 8.6 MG TAB PO SCH (21:00)
[2020-01-07] MEDS: ACETAMINOPHEN 500 MG TAB PO SCH (21:25)
[2020-01-07] MEDS ORDERED: TRANEXAMIC ACID / 0.7% NACL 1,000 MG/100 ML BAG IV SCH (22:00)
[2020-01-08] MEDS: Scopolamine CHECK PATCH PLACEMENT SCH ×2 (00:33→09:58)
[2020-01-08] MEDS: SODIUM CHLORIDE 0.9% 1000ML 1,000 ML IV SCH (03:33)
[2020-01-08] MEDS: KETOROLAC TROMETHAMINE 15 MG/ML VIAL IV SCH ×2 (04:58→12:44)
[2020-01-08] MEDS: CEFAZOLIN 1000MG 1,000 MG/7.5 ML SYR IV SCH (04:58)
[2020-01-08] MEDS: ACETAMINOPHEN 500 MG TAB PO SCH (04:59)
[2020-01-08] MEDS ORDERED: LEVOTHYROXINE SODIUM 75 MCG TABLET PO SCH (06:30)
[2020-01-08 06:52] LABS: Hematocrit (blood only) 29.2 % (37-47); Hemoglobin 9.5 g/dL (12.0-16.0); Mean Corpuscular Hemoglobin 30.1 pg (25-34); Mean Corpuscular Hgb Conc 32.5 g/dL (32-36); Mean Corpuscular Volume 92.4 fL (80-100); Platelet Count 150 K/uL (130-400); RDW Coefficient of Variation 13.9 % (11.5-14.5); RDW Standard Deviation 47.1 fL (36.4-46.3); Red Blood Count 3.16 M/uL (4.2-5.4); White Blood Count 5.17 K/uL (4.8-10.8)
[2020-01-08 07:16] LABS: BUN Creatinine Ratio 9.4 (10-20); Calcium 8.4 mg/dl (8.5-10.1); Creatinine Clr Calc Pharmacy 67.3 ml/min; Est GFR (African American) 86.7; Est GFR (Non-African American) 74.8; Potassium 4.1 mmol/L (3.5-5.1)
--- NOTE | 2020-01-08 08:46 | Progress Notes ---
DATE: 01/08/2020 SUBJECTIVE: A 74-year-old white female postop day 2 from left knee replacement. She is doing pretty well. Pain has been controlled. Had a reasonable night. No chest pain or shortness of breath. Not feeling dizzy or lightheaded. OBJECTIVE: VITAL SIGNS: Temperature 36.9. Vital signs stable. GENERAL: Shows a pleasant, middle-aged female. She is lying in bed, looks pretty comfortable. LUNGS: Clear to auscultation. HEART: Regular rate and rhythm. ABDOMEN: Soft, nontender, nondistended. EXTREMITIES: Grossly neurovascularly intact except as follows. Examination of the left leg reveals the leg to be well aligned. Dressing is clean, dry and intact. She can dorsiflex and plantarflex her foot appropriately. LABORATORY DATA: Hemoglobin 9.5. Hematocrit 29.2. Electrolytes are stable. ASSESSMENT: A 74-year-old white female postop day 1 from left knee replacement, doing reasonably well. Pain is controlled. She is slightly anemic, but asymptomatic. PLAN: 1. DVT prophylaxis including thigh-high TEDs, SCDs, and aspirin twice a day. 2. PT/OT. Weight bear as tolerated. Left total knee protocol. 3. Pain control, doing pretty well with current pain regimen. 4. Anemia. Continue iron supplementation. Currently asymptomatic. 5. Disposition: She is planning to be discharged to home with some home health once adequately recovered and medically stable and pain controlled.
[2020-01-08] MEDS ORDERED: PSYLLIUM 58.6% POWDER PACKET PO SCH (09:00)
[2020-01-08] MEDS ORDERED: MULTIVITAMIN TAB PO SCH ×2 (09:00)
[2020-01-08] MEDS ORDERED: CALCIUM 600MG + VIT D 400 IU TAB PO SCH (09:00)
[2020-01-08] MEDS: ASCORBIC ACID 500 MG TAB PO SCH (09:59)
[2020-01-08] MEDS: FERROUS GLUCONATE 324 MG TAB PO SCH (09:59)
[2020-01-08] MEDS: ASPIRIN 81 MG ECTAB PO SCH (10:00)
[2020-01-08] MEDS: DOCUSATE SODIUM 100 MG CAP PO SCH (10:00)
--- NOTE | 2020-01-15 21:14 | Discharge Summary ---
Date of Service January 15, 2020 Admission HPI Per Admitting Provider Documented in the H &P Admission Exam (Per Admitting) Constitutional Documented in the H & P Discharge Data Consultations 01/07/20 16:56 Consult Case Management - Discharge Planning Routine Procedures Performed Operation Date: 01/07/20 12:30 Actual Procedures p Left Total Knee Arthroplasty(Left) - Chad Manzanares MD Hospital Course (1) Status post total left knee replacement: This patient is a 74 year old female admitted on 01/07/20 and underwent total knee arthroplasty. She tolerated the procedure well and there were no complications. Transferred to the PACU post op and later to the orthopedic floor for further care. She was given ancef for antibiotic prophylaxis. She was also given VIPIN stockings, SCDs, and aspirin for DVT prophylaxis. Hemoglobin, hematocrit, and vital signs were monitored during her hospital stay and remained stable. Did not require any blood transfusions. She had some mild anemia and did receive an iron supplement. There were no complications during her hospital stay. By post op day #1 the patient was tolerating a regular diet, pain was reasonably controlled with oral pain medicine, and she was participating in physical therapy. On post op day #1 the patient was discharged home and set up with home health care. She was given printed discharge instructions including prescriptions for extra strength tylenol, aspirin, tramadol, and an iron supplement. Continue physical therapy, weight bearing as tolerated. Continue VIPIN stockings. Follow up approximately 2 weeks post op or sooner if there are problems or concerns. Coding Level of Care Code None Diagnoses Status post total left knee replacement Z96.652
== END 2020-01-08 13:43 | disposition home health service (06) ==
LOC: ASU 10:31 → 3E 10:31